=== PATIENT | male | born 1950 | race Caucasian/White ===

== ENCOUNTER 2021-01-30 12:59 | Emergency (ER) | payer OTHER ==
[~2021-01-30] VITALS: Ht 172.7 cm; Wt 79.0 kg
[2021-01-30 13:16] VITALS: BP 142/88
[2021-01-30] MEDS ORDERED: RAMI10CA59 PO (13:19)
[2021-01-30] MEDS ORDERED: IBUP200C8 PO (13:19)
[2021-01-30] MEDS ORDERED: SIMV40TA20 PO (13:19)
[2021-01-30] MEDS ORDERED: OXYMETAZOLINE NASAL SPRAY 0.05%,30ML ONE (13:33)
[2021-01-30] MEDS ORDERED: TRANEXAMIC ACID 100 MG/ML, 10ML ONE ×2 (13:34→13:35)
[2021-01-30] MEDS ORDERED: SILVER NITRATE STICK TP ONE ×2 (13:35→14:00)
[2021-01-30] MEDS ORDERED: TRANEXAMIC ACID 100 MG/ML, 10ML TP ONE (14:00)
[2021-01-30] MEDS ORDERED: PHENYLEPHRINE NASAL 1%, 30ML DROPS NAS ONE (14:00)
--- NOTE | 2021-01-30 15:06 | NUR ---
Patient given discharge instructions and they have confirmed that they understand the instructions. Patient ambulatory with steady gait.
== END 2021-01-30 15:07 | disposition home or self-care (01) ==
LOC: ED 15:01
DX: R04.0 Epistaxis (principal)
CPT/HCPCS: 30901; 99284

== ENCOUNTER 2021-01-30 17:05 | Emergency (ER) | payer OTHER ==
[~2021-01-30] VITALS: Ht 172.7 cm; Wt 81.5 kg
[~2021-01-30 17:05] MED LIST: IBUP200C8 PO; RAMI10CA59 PO; SIMV40TA20 PO
[2021-01-30 18:40] VITALS: BP 122/84
--- NOTE | 2021-01-30 18:40 | NUR ---
Patient given discharge instructions and they have confirmed that they understand the instructions. Patient ambulatory with steady gait.
== END 2021-01-30 18:41 | disposition home or self-care (01) ==
LOC: ED 18:21
DX: R04.0 Epistaxis (principal)
CPT/HCPCS: 99283

== ENCOUNTER → 2021-04-25 | Outpatient (CLI) | payer OTHER ==
[2021-04-25 07:45] LABS: ANION GAP 5 mmol/L (5-15); CHLORIDE 108 mmol/L (98-107)
== END | disposition home or self-care (01) ==
LOC: LAB 07:22
PROVIDERS: ATTEND Internal Medicine
DX: R97.20 Elevated prostate specific antigen [PSA] (principal)
CPT/HCPCS: 36415; 80048; 84153; 84154